=== PATIENT | female | born 2000 | race Caucasian/White ===

== ENCOUNTER 2021-12-13 17:03 | Emergency (ER) | payer MEDICAID, OTHER ==
[2021-12-13 17:31] VITALS: BP 108/75; PULSE 110
[2021-12-13] MEDS ORDERED: Sodium Chloride 0.9% 10 ML Syringe FLUSH PRN (17:34)
[2021-12-13] MEDS ORDERED: Sodium Chloride 0.9% 1,000 ML IV STA (17:34)
[2021-12-13] MEDS ORDERED: Ondansetron 4 MG/2 ML SDV IVPUSH ONE ×2 (17:35→19:48)
[2021-12-13] MEDS ORDERED: HYDROmorphone 0.5 MG/0.5 ML Syringe IVPUSH ONE ×3 (17:36→22:52)
[2021-12-13 18:04] LABS: ESTIMATED GFR > 60 mL/min (>60)
[2021-12-13] MEDS ORDERED: Iopamidol 612 MG/ML 100 ML Bottle IVPUSH ONE (18:04)
[2021-12-13] MEDS ORDERED: Diatrizoate Meglumine/Diatrizoate Sodium 37% 120 ML Bottle PO ONE (18:48)
[2021-12-13] MEDS ORDERED: Sodium Chloride 0.9% 1,000 ML IV SCH (20:00)
[2021-12-14] MEDS ORDERED: HYDROmorphone 0.5 MG/0.5 ML Syringe IVPUSH ONE (00:02)
== END 2021-12-14 00:09 ==
LOC: JD.ED 17:03
DX: K51.00 Ulcerative (chronic) pancolitis without complications (principal); Z20.822 Contact with and (suspected) exposure to COVID-19
CPT/HCPCS: 36415; 74177; 80053; 83605; 83735; 84703; 85025; 87635; 96361; 96374; 96375; 96376; 99285; J1170; J2405; J3490; J7030; Q9963; Q9967; U0002